=== PATIENT | male | born 1995 | race Caucasian/White ===

== ENCOUNTER 2019-01-11 09:00 | Emergency (ER) | payer OTHER ==
[~2019-01-11] VITALS: Ht 170.2 cm; Wt 61.4 kg
[2019-01-11 09:01] VITALS: BP 118/58
[2019-01-11] MEDS ORDERED: dexameTHASONE 20 MG/5 ML VIAL (J1100) IM ONE (09:30)
== END 2019-01-11 09:49 | disposition home or self-care (01) ==
LOC: M ED 09:00
DX: J02.9 Acute pharyngitis, unspecified (principal)
CPT/HCPCS: 87880; 96372; 99284; J1100

== ENCOUNTER 2019-04-07 10:51 | Day surgery (SDC) | payer OTHER ==
[~2019-04-07] VITALS: Ht 170.2 cm; Wt 59.1 kg
[2019-04-07] MEDS ORDERED: LIDOCAINE 1% SDV INJ 30 ML VIAL SC SCH (12:15)
[2019-04-07] MEDS ORDERED: LIDOCAINE 1% MDV 20ML VIAL SC ONE (12:15)
[2019-04-07] MEDS ORDERED: BUPIVACAINE HCL 0.5% 10 ML VIAL SC ONE (12:15)
[2019-04-07] MEDS ORDERED: LIDOCAINE 1% MDV 20ML VIAL As Ordered ONE (12:16)
--- NOTE | 2019-04-07 13:40 | REP ---
RIGHT SECOND DIGIT: Four views of the right second digit are performed. There is amputation of the tip of the digit which includes the tuft of the distal phalanx. No other fracture or dislocation is seen and I see no evidence of radiopaque foreign body. Electronically Signed by Itz Ortiz MD 04/08/2019 04:17 P
[2019-04-07] MEDS ORDERED: ceFAZolin 1GM INJ (J0690 PER 500MG) IM ONE (14:30)
[2019-04-07] MEDS ORDERED: ceFAZolin SOD 1 GM in D5W MINI-BAG PLUS 50 ML IV ONE (14:45)
[2019-04-07] MEDS ORDERED: NORC1TAB7 PO (14:45)
[2019-04-07] MEDS ORDERED: KEFL500C17 PO (14:50)
[2019-04-07] MEDS ORDERED: fentaNYL 250 MCG/5 ML INJECTION (J3010) As Ordered ONE (16:36)
[2019-04-07] MEDS ORDERED: MIDAZOLAM INJ 2 MG/2 ML VIAL (J2250) As Ordered ONE (16:37)
[2019-04-07] MEDS ORDERED: ceFAZolin 1GM INJ (J0690 PER 500MG) As Ordered ONE (16:37)
[2019-04-07] MEDS ORDERED: ROCURONIUM BROMIDE 50 MG/5 ML VIAL As Ordered ONE (16:38)
[2019-04-07] MEDS ORDERED: PROPOFOL 200 MG/20 ML VIAL As Ordered ONE ×2 (16:38→16:55)
[2019-04-07] MEDS ORDERED: LIDOCAINE 2% INJ 100 MG/5 ML SDV (FOR ANES.) As Ordered ONE (16:38)
[2019-04-07] MEDS ORDERED: LIDOCAINE 1% SDV INJ 30 ML VIAL As Ordered ONE (16:55)
[2019-04-07] MEDS ORDERED: KETOROLAC 60 MG/2 ML VIAL (J1885) As Ordered ONE (17:09)
[2019-04-07] MEDS ORDERED: ONDANSETRON 4MG/2ML VIAL (J2405) As Ordered ONE (17:10)
--- NOTE | 2019-04-07 18:27 | CR ---
DATE OF CONSULTATION: 04/07/2019 REASON FOR ADMISSION: Traumatic amputation, distal aspect right index finger. 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 X-rays showed loss of the tuft of the distal phalanx and the emergency room physician noted there was not soft tissue remaining to cover any of the bone that was exposed all the way down to the base of the nail plate. I was called to see him for this injury. He had a digital block already performed and some irrigation of the wound prior to my arrival. His tetanus is updated within the system. He was ordered to have some Kefzol antibiotic. He is otherwise a healthy, young male. He is right hand dominant. 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 He is from [place]. No prior medical history other than some pharyngitis several months earlier and a past surgical history of a cystocele of his testicle in the distant past. He does smoke cigarettes. He does not drink alcohol excessively. He takes no active medications. No known drug allergies. REVIEW OF SYSTEMS: Otherwise negative in detail. PHYSICAL EXAMINATION: Alert and oriented male otherwise. His temperature is 98.6. His pulse is 63, respirations 16, blood pressure 116/74, oxygen saturations are 99%. HEENT: Benign. LUNGS: Clear to auscultation. HEART: Regular. Right upper extremity examination revealed the distal phalanx amputation with just a small amount of the germinal matrix of the nail remaining proximally and this was essentially a circumferential transverse soft tissue loss with a large amount of the remaining distal phalanx exposed to the air. The distal interphalangeal (DIP), proximal interphalangeal (PIP), metacarpophalangeal (MCP) joint and extensor function of that index finger is intact. A digital block has been performed so he is in sensate presently. Radiographs show a distal phalanx fracture of the tuft. IMPRESSION: Traumatic amputation of the distal aspect of the right index finger with a significant amount of soft tissue loss and exposed bone. I talked to him about this and he understands that this likely will not heal over by secondary intention. So to help speed his recovery and I think to have a better cosmetic result, it would be best to trim the distal phalanx back, do a nail plate ablation, and basically a Syme's amputation and bring the volar flap of the remaining soft tissue pulp over the dorsum of the digit in hopes of saving as much length as possible but also to allow more rapid healing. There is always a risk of doing surgery. There is always a risk of having an infection, damage to nerve, blood vessels, anesthetic complications, amongst others. He understands that and he understands the rationale and is agreeable to this approach to care for him, so we plan to proceed to the operating room when it is available.
[2019-04-07] MEDS ORDERED: MORPHINE 4 MG/ML 1ML VIAL/SYRINGE (J2270) IV PRN (18:45)
[2019-04-07] MEDS ORDERED: LR 1,000 ML IV SCH (18:45)
[2019-04-07] MEDS ORDERED: NORCO, ANEXSIA 5/325MG TABLET (HYDROcodone/ACETAMINOPHEN) PO PRN ×2 (18:45)
--- NOTE | 2019-04-07 18:59 | RO ---
DATE OF PROCEDURE: 04/07/2019 PREPROCEDURE DIAGNOSIS: Traumatic amputation right index finger. POSTPROCEDURE DIAGNOSIS: Traumatic amputation right index finger. PROCEDURE: 1. Right index finger open fracture with traumatic amputation irrigation and debridement. 2. Right index finger nail plate ablation. 3. Right finger completion amputation with Syme's repair. SURGEON: Dr. Flo Whitehead RESEARCH LABORATORY MANAGER: ANESTHESIA: Local monitored anesthesia care (MAC). COMPLICATIONS: None. SPECIMENS: None. ESTIMATED BLOOD LOSS: None. DESCRIPTION OF PROCEDURE: Antibiotics were given intravenously preoperatively. Some light sedation was provided. A sterile prep was then performed with an alcohol pad, the volar aspect of the base of the right index finger and 1% lidocaine was infiltrated in the skin for a digital block. His right upper extremity and index finger were then carefully scrubbed, prepped and then draped in the usual sterile fashion. Then, after appropriate time-out, a finger from a sterile glove was used to work as a combination Esmarch and tourniquet. The finger was irrigated and debrided and then two longitudinal incisions were made along either edge of the nail plate, folding the nail fold back to remove the nail plate and underlying this, we removed the nail bed, including germinal matrix all the way back to the fibrous extensor tendon insertion and then made sure that I used a 15 blade to scrape any of the potential remaining germinal matrix cells from the edges into the corners. About 6 or 7 mm of bone of the distal phalanx were then cut back to allow the volar flap to be repaired without tension over the top of the digit. We copiously irrigated at this point and then began repairing with interrupted nylon sutures to close the volar flap back over dorsally to provide a nice closure. We irrigated again, then released the tourniquet, dressed it sterile with Xeroform and a dry sterile gauze and an Liu wrap, and then he was brought to the recovery room in stable condition. There were no intraoperative complications.
[2019-04-07 19:00] VITALS: BP 95/53
== END 2019-04-07 19:05 | disposition home or self-care (01) ==
LOC: EDBD 10:51 → M ED 10:51 → M SDC 14:40
PROVIDERS: ATTEND Orthopaedic Surgery
DX: S68.120A Partial traumatic metacarpophalangeal amputation of right index finger, initial encounter (principal); W23.1XXA Caught, crushed, jammed, or pinched between stationary objects, initial encounter; Y92.138 Other place on military base as the place of occurrence of the external cause; Y99.1 Military activity; Y93.89 Activity, other specified; F17.210 Nicotine dependence, cigarettes, uncomplicated
CPT/HCPCS: 26952; 73140; 96372; 96374; 99284; J0690; J1885; J2250; J2405; J3010